=== PATIENT | female | born 1965 ===

== ENCOUNTER 2024-07-18 06:17 | Day surgery (SDC) | payer BC, SELFPAY | END 2024-07-18 16:37 | disposition home or self-care (01) | LOC: GI 06:17 | PROVIDERS: ATTENDING PHYSICIAN Internal Medicine Gastroenterology; FAMILY PHYSICIAN Nurse Practitioner | DX: Z12.11 Encounter for screening for malignant neoplasm of colon (principal); K44.9 Diaphragmatic hernia without obstruction or gangrene; K31.7 Polyp of stomach and duodenum; K22.2 Esophageal obstruction; R13.14 Dysphagia, pharyngoesophageal phase; R12 Heartburn; Z86.0101 Personal history of adenomatous and serrated colon polyps | CPT/HCPCS: 43249; G0105; 88305 ==